=== PATIENT | male | born 1995 | race Caucasian/White ===

== ENCOUNTER 2024-06-16 16:41 | Observation (INO) ==
--- NOTE | 2024-06-16 16:58 | DR.ABDMALE ---
HPI Time seen Time Seen by Provider: 06/16/24 16:57 PCP Primary Care Physician: dena smith Complaint Chief Complaint:: Patient c/o of middle epigastric panchal pain that it seems to get worse at night along with nauseous. patient states he cant seem to take a good deep breathe. last bowel movement yesterday denies any vomiting. Self Treatment fo Chief Complaint: bentyl, zofran 1400 pepcid COVID-19 Coronavirus risk:travel/contact w/high risk person: No Has patient experienced Coronavirus symptoms: No Reviewed Nurses Notes Review: Yes Mode of arrival Mode of Arrival: Ambulatory Timing Onset of Chief Complaint: 06/15/24 PMH PMH Past Medical History: No Past Surgical History: Yes Past Surgical History Comment: hernia repair Family History History of Family Medical Conditions: Yes Family Medical History: Cancer Social History Does patient currently use any type of tobacco product: No Have you used tobacco products in the last 12 months: No Type of Tobacco Use: None Does any household member use tobacco: No Alcohol Use: None Do you use any recreational Drugs:: No Lives With: Family Lives Where: Home Travel Risk Coronavirus risk:travel/contact w/high risk person: No Has patient experienced Coronavirus symptoms: No Infectious screening In the last 2 months have you had wt loss of >10#?: NO Have you had fever, night sweats or hemotysis?: No Have you traveled outside the country in the last 6 months?: No Isolation: Standard PE Vital Signs Vital Signs: Temp Pulse Resp BP Pulse Ox O2 Del Method 06/16/24 20:45 83 95 06/16/24 20:30 76 95 06/16/24 20:15 79 95 06/16/24 20:00 83 95 06/16/24 19:20 18 06/16/24 19:45 101 H 96 06/16/24 19:30 87 96 06/16/24 19:15 88 95 06/16/24 19:08 93 L 06/16/24 19:08 160/97 06/16/24 19:07 93 L 06/16/24 18:49 92 H 98 06/16/24 18:30 90 19 157/96 97 Room Air 06/16/24 18:54 18 06/16/24 18:50 20 06/16/24 17:39 108 H 20 163/102 96 06/16/24 17:31 18 06/16/24 16:48 97.9 F 106 H 20 181/100 97 Room Air ROR Labs Reviewed 06/16/24 16:58 06/16/24 16:58 Laboratory: WBC 10.7 X10^3/uL (3.6-10.0) H 06/16/24 16:58 RBC 5.94 X10^6/uL (4.7-6.0) 06/16/24 16:58 Hgb 17.3 g/dL (13.5-18.0) 06/16/24 16:58 Hct 51.2 % (42.0-54.0) 06/16/24 16:58 MCV 86.3 fL (80.0-100.0) 06/16/24 16:58 MCH 29.1 pg (27.0-34.0) 06/16/24 16:58 MCHC 33.7 g/dL (33.0-35.0) 06/16/24 16:58 RDW 13.9 % (11.6-16.5) 06/16/24 16:58 Plt Count 404 X10^3/uL (150.0-450.0) 06/16/24 16:58 MPV 9.2 fL (7.4-11.0) 06/16/24 16:58 Neut % (Auto) 77.0 % (42.0-75.0) H 06/16/24 16:58 Lymph % (Auto) 13.2 % (21.0-51.0) L 06/16/24 16:58 Mills % (Auto) 8.8 % (0.0-13.0) 06/16/24 16:58 Eos % (Auto) 0.2 % (0.9-2.9) L 06/16/24 16:58 Baso % (Auto) 0.8 % (0.2-1.0) 06/16/24 16:58 Neut # (Auto) 8.2 x10^3/uL (2.2-4.8) H 06/16/24 16:58 Lymph # (Auto) 1.4 X10^3/uL (1.3-2.9) 06/16/24 16:58 Mills # (Auto) 0.9 x10^3/uL (0.3-0.8) H 06/16/24 16:58 Eos # (Auto) 0.0 x10^3/uL (0.0-0.2) 06/16/24 16:58 Baso # (Auto) 0.1 X10^3/uL (0.0-0.1) 06/16/24 16:58 Absolute Nucleated RBC 0.1 /100WBC 06/16/24 16:58 Sodium 135 mmol/L (136-145) L 06/16/24 16:58 Corrected Sodium 136 mmol/L (136-145) 06/16/24 16:58 Potassium 3.9 mmol/L (3.5-5.1) 06/16/24 16:58 Chloride 99 mmol/L (98-107) 06/16/24 16:58 Carbon Dioxide 28.1 mmol/L (21-32) 06/16/24 16:58 BUN 13 mg/dL (7-18) 06/16/24 16:58 Creatinine 1.20 mg/dL (0.70-1.30) 06/16/24 16:58 Est GFR (MDRD) Af Amer > 60 (>60) 06/16/24 16:58 Est GFR (MDRD) Non-Af > 60 (>60) 06/16/24 16:58 Glucose 126 mg/dL (65-99) H 06/16/24 16:58 Calcium 9.2 mg/dL (8.5-10.1) 06/16/24 16:58 Corrected Calcium TNP 06/16/24 16:58 Total Bilirubin 2.60 mg/dL (0.2-1.0) H 06/16/24 16:58 AST 275 Units/L (15-37) H 06/16/24 16:58 ALT 379 Units/L (12-78) H 06/16/24 16:58 Alkaline Phosphatase 106 Units/L (46-116) 06/16/24 16:58 Total Protein 9.2 g/dL (6.4-8.2) H 06/16/24 16:58 Albumin 4.2 g/dL (3.4-5.0) 06/16/24 16:58 Globulin 5.0 g/dL (2.5-4.5) H 06/16/24 16:58 Albumin/Globulin Ratio 0.8 Ratio (1.1-2.1) L 06/16/24 16:58 Amylase 62 Units/L (25-115) 06/16/24 16:58 Lipase 66 Units/L (16-77) 06/16/24 16:58 Opioid Opioid Risk Tool Age (French box if 16-45): Yes History of Preadolescent Sexual Abuse: No Total: 1 Total Score Risk Category: Low Risk Copyright: [place] [employer] predicting aberrant behaviors Discharge Plan Diagnosis Discharge Problem: Acute cholecystitis, Cholelithiasis, Abdominal pain Discharge Plan Patient Disposition: 01 HOME, SELF-CARE Condition: Stable Orders to Discharge Patient Discharge Orders: Transfer (Routine); Ordered 06/16/24 Ordered By: BERNARD ESTEVEZ
[2024-06-16 17:24] LABS: HEMOGLOBIN 17.3 g/dL (13.5-18.0); MEAN CORPUSCULAR VOLUME 86.3 fL (80.0-100.0); PLATELET COUNT 404 X10^3/uL (150.0-450.0)
[2024-06-16] MEDS: ZOFRAN INJ 4 MG VIAL IVP ONE ×2 (17:27→18:50)
[2024-06-16 17:28] LABS: BASOPHILS # (AUTO) 0.1 X10^3/uL (0.0-0.1); BASOPHILS % (AUTO) 0.8 % (0.2-1.0); EOSINOPHILS % (AUTO) 0.2 % (0.9-2.9); HEMATOCRIT 51.2 % (42.0-54.0); LYMPHOCYTES # (AUTO) 1.4 X10^3/uL (1.3-2.9); LYMPHOCYTES % (AUTO) 13.2 % (21.0-51.0); MEAN CORPUSCULAR HEMOGLOBIN 29.1 pg (27.0-34.0); MEAN CORPUSCULAR HGB CONC 33.7 g/dL (33.0-35.0); MEAN PLATELET VOLUME 9.2 fL (7.4-11.0); MONOCYTES # (AUTO) 0.9 x10^3/uL (0.3-0.8); MONOCYTES % (AUTO) 8.8 % (0.0-13.0); NEUTROPHILS # (AUTO) 8.2 x10^3/uL (2.2-4.8); RED BLOOD COUNT 5.94 X10^6/uL (4.7-6.0); RED CELL DISTRIBUTION WIDTH 13.9 % (11.6-16.5); WHITE BLOOD COUNT 10.7 X10^3/uL (3.6-10.0)
[2024-06-16] MEDS: DEMEROL INJ IVP ONE (17:31)
[2024-06-16 17:35] LABS: ALANINE AMINOTRANSFERASE 379 Units/L (12-78); ALBUMIN 4.2 g/dL (3.4-5.0); ALKALINE PHOSPHATASE 106 Units/L (46-116); AMYLASE 62 Units/L (25-115); ASPARTATE AMINO TRANSFERASE 275 Units/L (15-37); BLOOD UREA NITROGEN 13 mg/dL (7-18); CALCIUM 9.2 mg/dL (8.5-10.1); CARBON DIOXIDE 28.1 mmol/L (21-32); CHLORIDE 99 mmol/L (98-107); COR NA(FOR HYPERGLY) 136 mmol/L (136-145); GLUCOSE 126 mg/dL (65-99); LIPASE 66 Units/L (16-77); POTASSIUM 3.9 mmol/L (3.5-5.1); SODIUM 135 mmol/L (136-145); TOTAL PROTEIN 9.2 g/dL (6.4-8.2); eGFR NON BLACK RACES > 60 (>60)
[2024-06-16] MEDS: PROTONIX INJ 40 MG VIAL 80 MG in NS 100 ML IV 80 ML IV SCH (17:37)
[2024-06-16] MEDS: DILAUDID INJ IVP ONE (18:50)
--- NOTE | 2024-06-16 20:46 | CT ---
EXAM: CT abdomen and pelvis with intravenous contrast HISTORY: c/o of middle epigastric sharp pain that it seems to get worse at night along with nauseous. patient states he cant seem to take a good deep breathe. last bowel movement yesterday; COMPARISON: CT exam June 07, 2024 TECHNIQUE: CT of the abdomen and pelvis with intravenous contrast FINDINGS: The lung bases are clear. The abdominal aorta tapers normally. There is intrahepatic and extrahepat ic biliary ductal dilatation. The gallbladder is distended. There is avid gallbladder wall enhancem ent and either gallbladder wall thickening or pericholecystic fluid. Normal adrenal glands. Right renal cortical cysts. Kidneys are not obstructed. The ureters taper n ormally. Normal spleen and pancreas contours. Nonobstructed stomach. Bowel is nonobstructed. The normal appendix is visible. No pelvic free fluid. No free air or bowel wall thickening. No suspicious bony lesion. IMPRESSION: Acute cholecystitis. All CT scans at this facility use dose modulation, iterative reconstruction and/or weight based dosin g when appropriate to reduce radiation dose to as low as reasonably achievable. THIS IS AN ELECTRONICALLY VERIFIED FINAL REPORT 06/16/2024 8:42 PM - Electronically signed by Walt Morton MD
[2024-06-16] MEDS: LEVAQUIN PREMIX IV 750 MG 750 MG/150 ML BAG IV ONE (21:05)
[2024-06-16 22:38] LABS: BILIRUBIN,URINE 1+ (NEGATIVE); BLOOD/HEMOGLOBIN,URINE NEGATIVE (NEGATIVE); GLUCOSE, URINE NEGATIVE (NEGATIVE); KETONES,URINE 3+ (NEGATIVE); LEUKOCYTE ESTERASE ,URINE 1+ (NEGATIVE); NITRITES,URINE NEGATIVE (NEGATIVE); PROTEIN,URINE 2+ (NEGATIVE); UROBILINOGEN,URINE 2+ (NORMAL)
[2024-06-16 22:44] LABS: APPEARANCE,URINE CLEAR (CLEAR); BACTERIA,URINE TRACE /HPF (NEGATIVE); COLOR,URINE DARK YELLOW (YELLOW); RBC,URINE NONE SEEN /HPF (0-3); SQUAMOUS EPITHELIAL CELL,UR RARE /HPF (NEGATIVE)
[2024-06-16 22:58] VITALS: BMI 35.0
[2024-06-16] MEDS: DILAUDID INJ IVP PRN (23:20)
[2024-06-16] MEDS: NS 1,000 ML IV 1,000 ML IV SCH (23:21)
[2024-06-16] MEDS: ZOFRAN INJ 4 MG VIAL IVP PRN (23:39)
[2024-06-17 06:44] LABS: BASOPHILS # (AUTO) 0.2 X10^3/uL (0.0-0.1); BASOPHILS % (AUTO) 1.8 % (0.2-1.0); EOSINOPHILS % (AUTO) 0.1 % (0.9-2.9); HEMATOCRIT 47.6 % (42.0-54.0); HEMOGLOBIN 15.9 g/dL (13.5-18.0); LYMPHOCYTES # (AUTO) 0.8 X10^3/uL (1.3-2.9); LYMPHOCYTES % (AUTO) 8.4 % (21.0-51.0); MEAN CORPUSCULAR HEMOGLOBIN 28.8 pg (27.0-34.0); MEAN CORPUSCULAR HGB CONC 33.3 g/dL (33.0-35.0); MEAN CORPUSCULAR VOLUME 86.5 fL (80.0-100.0); MEAN PLATELET VOLUME 9.4 fL (7.4-11.0); MONOCYTES # (AUTO) 0.9 x10^3/uL (0.3-0.8); NEUTROPHILS # (AUTO) 8.1 x10^3/uL (2.2-4.8); NEUTROPHILS % (AUTO) 80.7 % (42.0-75.0); PLATELET COUNT 376 X10^3/uL (150.0-450.0); RED BLOOD COUNT 5.51 X10^6/uL (4.7-6.0); RED CELL DISTRIBUTION WIDTH 13.7 % (11.6-16.5)
[2024-06-17 07:01] LABS: ALANINE AMINOTRANSFERASE 473 Units/L (12-78); ALBUMIN 3.8 g/dL (3.4-5.0); ALKALINE PHOSPHATASE 118 Units/L (46-116); AMYLASE 119 Units/L (25-115); ASPARTATE AMINO TRANSFERASE 304 Units/L (15-37); BLOOD UREA NITROGEN 15 mg/dL (7-18); CALCIUM 8.7 mg/dL (8.5-10.1); CARBON DIOXIDE 28.7 mmol/L (21-32); CHLORIDE 100 mmol/L (98-107); COR NA(FOR HYPERGLY) 138 mmol/L (136-145); CREATININE 1.02 mg/dL (0.70-1.30); GLUCOSE 121 mg/dL (65-99); LIPASE 160 Units/L (16-77); SODIUM 137 mmol/L (136-145); TOTAL PROTEIN 8.3 g/dL (6.4-8.2); eGFR NON BLACK RACES > 60 (>60)
--- NOTE | 2024-06-17 07:13 | RAD ---
EXAM:Acute abdominal series three viewsHISTORY:Abdominal painCOMPARISON:NoneFINDINGS:Heart size is normal. Liliya are normal. Lung campos are clear. No pleural effusions identified. Abdominal gas pattern is nonspecific and nonobstructive. No abnormal masses or abnormal calcifications are identified. No pneumoperitoneum is identified. Regional skeleton is intact.IMPRESSION:Unremarkable acute abdominal seriesTHIS IS AN ELECTRONICALLY VERIFIED FINAL [id number]/17/2024 7:10 AM - Electronically signed by Reinier Davidson MD
[2024-06-17] MEDS: LR 1,000 ML IV 1,000 ML IV ONE ×2 (08:07→10:17)
[2024-06-17] MEDS: NOZIN NASAL SANITIZER TP ONE (08:07)
[2024-06-17] MEDS: OFIRMEV IV 1000 MG VIAL 1,000 MG/100 ML VIAL IV ONE (08:29)
[2024-06-17] MEDS: NS 100 ML IV 100 ML ONE (08:34)
[2024-06-17] MEDS: ANCEF VIAL 1 GRAM ONE (08:34)
[2024-06-17] MEDS: DIPRIVAN VIAL 20 ML ONE (08:42)
[2024-06-17] MEDS: ZEMURON 100 MG VIAL ONE (08:42)
[2024-06-17] MEDS: ZOFRAN INJ 4 MG VIAL ONE ×3 (08:42→21:51)
[2024-06-17] MEDS: PEPCID 20 MG VIAL ONE (08:42)
[2024-06-17] MEDS ORDERED: ULTANE GAS IN ONE (08:42)
[2024-06-17] MEDS: REGLAN INJ 10 MG VIAL ONE (08:42)
[2024-06-17] MEDS: BRIDION ONE ×2 (08:42→09:21)
[2024-06-17] MEDS ORDERED: XYLOCAINE 2 % (PLAIN) ONE (08:42)
[2024-06-17] MEDS: TORADOL 30 MG VIAL ONE (08:42)
[2024-06-17] MEDS: DILAUDID INJ ONE ×2 (08:42→21:51)
[2024-06-17] MEDS: FENTANYL VIAL INJ 100 mcg ONE (08:42)
[2024-06-17] MEDS: VERSED ONE (08:42)
[2024-06-17] MEDS: KETAMINE 50 MG/5 ML-NACL SYRNG ONE (08:48)
[2024-06-17] MEDS: BACTROBAN TOPICAL OINT ONE (09:04)
[2024-06-17] MEDS ORDERED: BENADRYL INJ 50 MG VIAL IVP PRN (09:27)
[2024-06-17] MEDS ORDERED: DILAUDID INJ IVP PRN ×2 (09:27→10:45)
[2024-06-17] MEDS ORDERED: ZOFRAN INJ 4 MG VIAL IVP PRN (09:27)
[2024-06-17] MEDS: ROBINUL ONE (09:43)
[2024-06-17] MEDS: DECADRON INJ ONE (10:21)
[2024-06-17] MEDS: D5 1/2 NS 1,000 ML 1,000 ML IV SCH (11:46)
[2024-06-17] MEDS: MORPHINE SULFATE INJ 4 MG ONE (15:06)
[2024-06-17] MEDS: MORPHINE SULFATE INJ 4 MG IVP PRN (15:10)
[2024-06-17] MEDS: TORADOL 30 MG VIAL IVP PRN (16:54)
[2024-06-17] MEDS ORDERED: TORADOL 30 MG VIAL ONE (16:54)
[2024-06-17] MEDS: LEVAQUIN PREMIX IV 750 MG 750 MG/150 ML BAG IV SCH (20:53)
[2024-06-17] MEDS: DEMEROL INJ ONE (21:50)
[2024-06-17] MEDS: LEVAQUIN PREMIX IV 750 MG 750 MG/150 ML BAG IV ONE (21:51)
[2024-06-17] MEDS: OMNIPAQUE 350 mg/mL 100 mL BTL 100 ML ONE (21:51)
[2024-06-18 00:10] VITALS: RESP 20
[2024-06-18 06:03] LABS: BASOPHILS # (AUTO) 0.3 X10^3/uL (0.0-0.1); BASOPHILS % (AUTO) 2.6 % (0.2-1.0); EOSINOPHILS % (AUTO) 0.1 % (0.9-2.9); HEMATOCRIT 41.9 % (42.0-54.0); HEMOGLOBIN 13.9 g/dL (13.5-18.0); LYMPHOCYTES # (AUTO) 1.8 X10^3/uL (1.3-2.9); MEAN CORPUSCULAR HEMOGLOBIN 28.7 pg (27.0-34.0); MEAN CORPUSCULAR HGB CONC 33.1 g/dL (33.0-35.0); MEAN CORPUSCULAR VOLUME 86.7 fL (80.0-100.0); MEAN PLATELET VOLUME 9.2 fL (7.4-11.0); MONOCYTES # (AUTO) 1.5 x10^3/uL (0.3-0.8); MONOCYTES % (AUTO) 12.6 % (0.0-13.0); NEUTROPHILS # (AUTO) 8.3 x10^3/uL (2.2-4.8); NEUTROPHILS % (AUTO) 69.7 % (42.0-75.0); PLATELET COUNT 334 X10^3/uL (150.0-450.0); RED BLOOD COUNT 4.83 X10^6/uL (4.7-6.0); RED CELL DISTRIBUTION WIDTH 13.9 % (11.6-16.5); WHITE BLOOD COUNT 11.9 X10^3/uL (3.6-10.0)
[2024-06-18 06:20] LABS: ALANINE AMINOTRANSFERASE 446 Units/L (12-78); ALBUMIN 3.4 g/dL (3.4-5.0); ALKALINE PHOSPHATASE 115 Units/L (46-116); ASPARTATE AMINO TRANSFERASE 181 Units/L (15-37); BLOOD UREA NITROGEN 9 mg/dL (7-18); CALCIUM 8.2 mg/dL (8.5-10.1); CARBON DIOXIDE 31.1 mmol/L (21-32); CHLORIDE 99 mmol/L (98-107); CREATININE 0.97 mg/dL (0.70-1.30); GLUCOSE 98 mg/dL (65-99); POTASSIUM 3.6 mmol/L (3.5-5.1); SODIUM 136 mmol/L (136-145); TOTAL PROTEIN 7.6 g/dL (6.4-8.2); eGFR NON BLACK RACES > 60 (>60)
[2024-06-18 06:58] LABS: BAND NEUTROPHILS % 4 % (0-10); BASOPHILS % (MANUAL) 1 % (0-1); METAMYELOCYTES % 1
[2024-06-18 06:59] LABS: PLATELET MORPHOLOGY COMMENT NORMAL (NORMAL)
[2024-06-18 08:30] VITALS: BP 139/87; PULSE 98; TEMP 98; O2SAT 97
== END 2024-06-18 09:10 | disposition home or self-care (01) ==
LOC: ER 16:41 → MED/SURG 16:41
PROVIDERS: ADMIT Surgery; ATTEND Surgery